=== PATIENT | female | born 1955 | race Caucasian/White ===

== ENCOUNTER 2024-01-20 10:21 | Emergency (ER) | payer MEDICARE, SELFPAY ==
[2024-01-20 10:22] VITALS: BP 149/78
--- NOTE | 2024-01-20 10:26 | ED.GENMED ---
History of Present Illness
General
Chief Complaint: Skin Surface Trauma
Source: patient
Exam Limitations: none
Time Seen by Provider: 01/20/24 10:25
Nursing documentation reviewed up to this point in time: agreed with
History of Present Illness
History of Present Illness:
68-year-old female no past medical history presents emergency department today with concerns of a laceration to the right anterior wrist/forearm. Patient reports that she was reaching into a garbage can when she was reaching for something that she
excellently threw away and subsequently cut her arm on glass. Patient states that she immediately started to the wound. Patient denies any remaining foreign body within the wound. Patient does not take any blood thinners or any antiplatelet
therapy. Patient states that she has not received her tetanus vaccine within the last 5 years. Patient denies any numbness or tingling in her extremity, any increasing pain, any pallor.
Past History
Past History
ED Past Medical History: None
Review of Systems
Review of Systems
All Other Systems: ROS reviewed and negative except as documented in HPI and ROS
Phy Exam
Physical Exam
Physical Exam:
General: Patient is well appearing and in no acute distress; non-toxic
Skin: Warm and dry, 4 cm V shaped laceration on the right anterior forearm, actively bleeding, no obvious foreign body, no tendon involvement. Brisk capillary refill.
Head: Normocephalic, atraumatic
Eyes: Sclera non-icteric. EOMs intact. PERRLA.
Cardiac: Regular rate
Peripheral Vascular: 2+ radial and ulnar pulses.
Pulm: Normal respiratory effort
Musculoskeletal: 5/5 strength in right upper extremity. No wrist drop.
Neuro: CN II-XII intact, no focal neurologic deficits.
Psychiatric: Appropriate mood and affect.
Course
Orders/Labs/Results
Orders:
Orders
01/20/24 10:35
CR Forearm - Right 2 View Urgent
Comment:
Reason For Exam: right arm pain
CR Wrist - Right Min 3 Views Urgent
Comment:
Reason For Exam: right wrist pain
01/20/24 10:36
Acetaminophen [Tylenol] 1,000 mg PO NOW STA
Tetanus/Diphth/Acelpertussis [Adacel] 0.5 ml IM .ONCE ONE
01/20/24 11:11
Ibuprofen [Motrin] 400 mg PO NOW STA
Vital Signs
Initial and Last Documented VS:
Initial Vital Signs
Temp Pulse Resp BP Pulse Ox
98.3 F 88 18 149/78 96
01/20/24 10:22 01/20/24 10:22 01/20/24 10:22 01/20/24 10:22 01/20/24 10:22
Last Documented Vital Signs
Temp Pulse Resp BP Pulse Ox
98.3 F 88 18 149/78 96
01/20/24 10:22 01/20/24 10:22 01/20/24 10:22 01/20/24 10:22 01/20/24 10:22
Procedures
Laceration Closure
Right Anterior Arm:
Status of Wound: clean
Size of Wound in cm: 4
Preparation: cleaned with saline
Anesthesia: 1% Lidocaine with epi
Revision/Debridement: minor revision
Wound exploration: explored to base- no FB
Type of Closure: layered closure
Skin Closure Material: 4-0 prolene and 5-0 chromic gut
Additional information:
2 deep dermal sutures were placed, and 15 simple interrupted sutures were placed
MDM/Problems Addressed
Differential Diagnosis Includes:
Differentials include abrasion, laceration, foreign body, muscle strain
MDM/Problems Addressed:
68-year-old female presents emergency department with a laceration to the right anterior forearm following a cut with glass. On exam, she has a 4 cm V-shaped laceration on the right anterior forearm. She is neurovascularly intact and has good
strength of her right upper extremity. Patient felt like she could not flex her fingers as strongly, however following laceration repair, she felt as if this symptom resolved. I advised patient to follow-up with hand surgery should she find
weakness in his extremity. Her tetanus was updated. Sutures were placed. Patient tolerated this procedure well. Return precautions discussed. Patient stable for discharge.
Chronic conditions affecting care:
n/a
Acute Exacerbation and/or Progression of Chronic Illness:
n/a
*Radiology
Radiology exam reviewed: preliminary read by ED provider (No radiopaque foreign body)
*Pulse Oximetry
Patient hypoxic: no
*Critical Care Note
Total Time (30-74mins, 75-104mins- exclusive of procedures): Not Applicable
Data Reviewed
Review of Other/Old Records Reveals: Records (Reviewed ER physician documentation from 09/25/2009, patient seen for gross hematuria)
Source: patient and records
Prescriptions/Medications Considered But Not Given:
n/a
Further Testing Considered But Not Given:
n/a
Patient Management
Escalation/DeEscalation of care consider admission/obs:
Patient stable for discharge. Case reviewed with my attending Dr. Huber.
ED Attending Note
-
Portions of this chart may have been created with voice recognition software.� Occasional wrong word or��sound alike� substitutions may have occurred due to the inherent limitations of voice recognition software.
Discharge Plan
Departure
Patient Disposition: Home (Routine Discharge)
Date of Disposition: 01/20/24
Time of Disposition: 12:17
Patient with high blood pressure during this ER visit?: Yes
Condition: Good
Discharge Problem:
Forearm laceration
Instructions: Wound Care (DC), Laceration Repair With Stitches (DC), BLOOD PRESSURE
Prescriptions:
No Action
phenazopyridine 200 MG tablet
200 mg PO TID Qty: 6 0RF
sulfamethoxazole-trimethoprim 800 MG/160 MG tablet
1 tab PO BID Qty: 10 0RF
Referrals:
Jose Wilson MD [Active] - Call in 1-3 days for appt
Uriel Patel DO [Family Provider] -
Activity Restrictions/Additional Instructions:
Please leave dressing in place for 24 hours. Please keep the wound dry for 24 to 48 hours. After this time, you can change dressing once daily and let mild soapy water run over the wound. Please not scrub the wound.
Should you experience pussy drainage from the wound, surrounding redness to the wound, and acute worsening of your pain, numbness or tingling, please return to the emergency department.
Please report to urgent care, your primary care provider or the emergency departments have your stitches removed in 7 to 10 days.
Interventions
Interventions:
*Risk Screen - Suicide Last Done: 01/20/24 10:22
*General Assessment Last Done: 01/20/24 10:22
*Neglect/Abuse Screening Last Done: 01/20/24 10:22
ED-Skin Assessment Last Done: 01/20/24 10:28
Discharge Date and Time
Print Language: BELIZEAN
[2024-01-20] MEDS: TYLENOL 1000 MG PO (10:43)
[2024-01-20] MEDS: MOTRIN 400 MG PO (11:21)
[2024-01-20] MEDS: ADACEL 0.5 ML IM (11:21)
--- NOTE | 2024-01-20 11:33 | EDRN ---
11:21 IM to [facility]
== END 2024-01-20 12:35 | disposition home or self-care (01) ==
LOC: EMR 10:21
PROVIDERS: EMERGENCY PHYSICIAN Emergency Medicine; FAMILY PHYSICIAN Internal Medicine
DX: S51.811A Laceration without foreign body of right forearm, initial encounter (principal); W25.XXXA Contact with sharp glass, initial encounter; Z23 Encounter for immunization; R03.0 Elevated blood-pressure reading, without diagnosis of hypertension
CPT/HCPCS: 12032; 99283; 90471; 73090; 73110; 90715